=== PATIENT | male | born 1965 | race Caucasian/White ===

== ENCOUNTER 2020-10-24 13:35 | Outpatient (RCR) | payer OTHER, SELFPAY ==
[2020-10-24] MEDS: COVID-19 VACC, MRNA(PFIZER)/PF 30 MCG/0.3 ML SYRINGE IM (15:05)
[2020-11-14] MEDS: COVID-19 VACC, MRNA(PFIZER)/PF 30 MCG/0.3 ML SYRINGE IM (15:00)
== END 2021-01-16 23:59 ==
LOC: IMMUN 13:35
PROVIDERS: PCP Internal Medicine; Referring Provider Family Medicine; Visit Provider Family Medicine
DX: Z23 Encounter for immunization (principal)
CPT/HCPCS: 0001A; 0002A; 91300